=== PATIENT | female | born 1990 | race Caucasian/White ===

== ENCOUNTER 2021-03-05 13:56 | Emergency (ER) | payer OTHER ==
[~2021-03-05] VITALS: Ht 157.5 cm; Wt 63.5 kg
[2021-03-05 13:57] VITALS: BP 149/78
[2021-03-05 15:29] VITALS: BP 105/70
--- NOTE | 2021-03-05 15:29 | NUR ---
pt verbalizes dc instructions no acute distress noted. stable on dc.
[2021-03-06 06:25] LABS: HEPATITIS B SURFACE ANTIGEN Negative (Negative)
--- NOTE | 2021-03-06 16:41 | NUR ---
Bernabe conti in ED - 03/06/21 at 1642 by [email or web address] SEVEN FROM LAB STATED PT NEEDS TO COME BACK TO BE REDRAWN FOR TESTS. PT CALLED AND INFORMED.
--- NOTE | 2021-03-06 16:42 | NUR ---
SEVEN FROM LAB STATED PT NEEDS TO COME BACK TO BE REDRAWN FOR TESTS. PT CALLED AND INFORMED.
== END 2021-03-05 15:30 | disposition home or self-care (01) ==
LOC: MED 13:56
DX: S61.235A Puncture wound without foreign body of left ring finger without damage to nail, initial encounter (principal); W46.1XXA Contact with contaminated hypodermic needle, initial encounter; Y93.89 Activity, other specified; Y92.89 Other specified places as the place of occurrence of the external cause; Y99.8 Other external cause status
CPT/HCPCS: 36415; 86592; 86702; 86708; 86803; 87340; 99283